=== PATIENT | female | born 1985 | race Caucasian/White ===

== ENCOUNTER 2019-03-23 20:54 | Emergency (ER) | payer BC, OTHER ==
[~2019-03-23] VITALS: Ht 154.9 cm; Wt 81.6 kg
[2019-03-23 21:11] VITALS: Ht 154.9 cm; Wt 81.6 kg
[2019-03-23] MEDS ORDERED: SOD CHLORIDE 0.9% 100 ML ONE (22:42)
[2019-03-23] MEDS ORDERED: IOHEXOL 100 ML ONE (22:42)
[2019-03-23] MEDS ORDERED: DOCU-159 PO (23:23)
[2019-03-23] MEDS ORDERED: IBUP-1542 PO (23:23)
[2019-03-23] MEDS ORDERED: FER325 PO (23:23)
[2019-03-23] MEDS ORDERED: PREN-6 PO (23:23)
[2019-03-24 00:21] VITALS: BP 110/80; PULSE 78; RESP 19
--- NOTE | 2019-03-24 00:30 | ERD ---
ER Documentation Chief Complaint Chief Complaint SOB yesterday. 5 days post . +chest pressure. +swelling all over. HPI Is a very pleasant 33 female says shortness of breath on and off since she delivered approximately 1 week ago. She complains of mild chest pressure and she comes edema bilateral lower extremities. She denies any fevers chills nausea vomiting. She denies any headache. She denies any focal neurologic comp laints for chest pain is very mild and is since dissipated since it first began pain shortness of breath is also resolved with the patient want to be checked out just in case per the patient. No history of cardiac disease. Normal spontaneous vaginal delivery. No complications of . ROS All systems reviewed and are negative except as per history of present illness. Medications Home Meds Reported Medications Vits #93-Iron Fum-FA ( Formula) 1 Each Tablet, 1 TAB PO DAILY, TAB 03/23/19 Ibuprofen* (Ibuprofen*) 600 Mg Tablet, 600 MG PO Q6H PRN for PAIN LEVEL 1-5, TAB 03/23/19 Ferrous Sulfate* (Ferrous Sulfate*) 325 Mg Tabec, 325 MG PO DAILY for 90 Days, #90 03/23/19 Docusate Sodium* (Docusate Sodium*) 100 Mg Capsule, 100 MG PO BID for 30 Days, #60 03/23/19 Allergies Allergies: Coded Allergies: No Known Drug Allergy (Verified Allergy, Unknown, 03/23/19) PMhx/Soc Medical and Surgical Hx: pt denies Medical Hx, pt denies Surgical Hx Hx Alcohol Use: No Hx Substance Use: No Hx Tobacco Use: No Smoking Status: Never smoker Physical Exam Vitals Vital Signs Date Temp Pulse Resp B/P (MAP) Pulse Ox O2 O2 Flow FiO2 Time Delivery Rate 03/23/19 61 22 119/77 98 Room Air 22:58 (91) 03/23/19 98.2 74 24 160/81 97 21:11 (107) Physical Exam Const: No acute distress Head: Atraumatic Eyes: Normal Conjunctiva ENT: Normal External Ears, Nose and Mouth. Neck: Full range of motion. No meningismus. Resp: Clear to auscultation bilaterally Cardio: Regular rate and rhythm, no murmurs Abd: Soft, non tender, non distended. Normal bowel sounds Skin: No petechiae or rashes Back: No midline or flank tenderness Ext: No cyanosis, or edema Neur: Awake and alert Psych: Normal Mood and Affect Result Diagram: 03/23/19213803/23/192138 Results 24 hrs Laboratory Tests Test 03/23/19 21:34 03/23/19 21:39 03/23/19 21:49 03/23/19 23:36 Blood Gas Blood arterial Specimen Source Arterial Blood 03/23/2019 11:00:1 Date Drawn 9 PM Arterial Blood pH 7.439 (Temp corrected) Arterial Blood 33.2 mmhg pCO2 (Temp correct) Arterial Blood 94.5 mmHG pO2 (Temp corrected) Arterial Blood 22.0 mmol/L HCO3 Arterial Blood -1.5 mmol/L Base Excess Arterial Blood 96.9 mmHG Oxygen Saturation Manuel Test ACCEPTAB Arterial Blood Right Radial Gas Puncture Site Arterial 0.3 % Blood Carboxyhemo globin Arterial Blood 0.2 % Methemoglobin Blood Gas A-a O2 15.5 mmHg Differential Oxyhemoglobin 96.4 % Percent Blood Gas 37.0 C Temperature Blood Gas ROOM AIR Modality FiO2 21.0 % Blood Gas MR Notified Whom Blood Gas 03/23/2019 11:05:4 Notified Time 7 PM White Blood Count 10.4 10^3/ul Red Blood Count 4.07 10^6/ul Hemoglobin 12.3 g/dl Hematocrit 36.8 % Mean Corpuscular 90.4 fl Volume Mean Corpuscular 30.2 pg Hemoglobin Mean Corpuscular 33.4 g/dl Hemoglobin Concen t Red Cell 13.8 % Distribution Width Platelet Count 262 10^3/UL Mean Platelet 10.7 fl Volume Immature 0.900 % Granulocytes % Neutrophils % 60.6 % Lymphocytes % 31.6 % Monocytes % 4.8 % Eosinophils % 1.8 % Basophils % 0.3 % Nucleated Red 0.0 /100WBC Blood Cells % Immature 0.090 10^3/ul Granulocytes # Neutrophils # 6.3 10^3/ul Lymphocytes # 3.3 10^3/ul Monocytes # 0.5 10^3/ul Eosinophils # 0.2 10^3/ul Basophils # 0.0 10^3/ul Nucleated Red 0.0 10^3/ul Blood Cells # Prothrombin Time 11.4 Sec Prothrombin Time 0.9 Ratio INR International 0.82 Normalized Ratio Activated 29.6 Sec Partial Thrombopl ast Time Urine Color YELLOW Urine Clarity CLEAR Urine pH 6.0 Urine Specific 1.006 Leblanc Urine Ketones NEGATIVE mg/dL Urine Nitrite NEGATIVE mg/dL Urine Bilirubin NEGATIVE mg/dL Urine NEGATIVE mg/dL Urobilinogen Urine Leukocyte TRACE Tere/ul Esterase Urine Microscopic 51 /HPF RBC Urine Microscopic 8 /HPF WBC Urine Bacteria FEW /HPF Urine Hemoglobin 3+ mg/dL Urine Glucose NEGATIVE mg/dL Urine Total NEGATIVE mg/dl Protein Sodium Level 137 mmol/L Potassium Level 3.8 mmol/L Chloride Level 106 mmol/L Carbon Dioxide 24 mmol/L Level Anion Gap 7 Blood Urea 15 mg/dl Nitrogen Creatinine 0.49 mg/dl Est Glomerular > 60 mL/min Filtrat Rate mL/min Glucose Level 93 mg/dl Calcium Level 9.5 mg/dl Total Bilirubin 0.3 mg/dl Direct Bilirubin 0.00 mg/dl Indirect 0.3 mg/dl Bilirubin Aspartate Amino 43 IU/L Transf (AST/SGOT) Alanine 52 IU/L Aminotransferase (ALT/SGPT) Alkaline 159 IU/L Phosphatase Troponin I < 0.012 ng/ml B-Type 159 PG/ML Natriuretic Peptide Total Protein 6.7 g/dl Albumin 3.5 g/dl Globulin 3.20 g/dl Albumin/Globulin 1.09 Ratio POC Venous 0.8 mmol/L Lactate Lactic Acid Level 0.8 mmol/L Current Medications Medications Dose Sig/Reynold Start Time Status Last (Trade) Ordered Route PRN Stop Time Admin Dose Reason Admin IV Flush 10 ml STK-MED 03/23/19 DC (NS 10 ml) ONCE .ROUTE 22:42 03/23/19 22:43 Sodium 100 ml @ ud STK-MED 03/23/19 DC Chloride ONCE .ROUTE 22:42 03/23/19 22:43 Iohexol 100 ml @ ud STK-MED 03/23/19 DC ONCE .ROUTE 22:42 03/23/19 22:43 Procedures/MDM EKG: Rate/Rhythm: [Normal Sinus Rhythm] QRS, ST, T-waves: [No changes consistent w/ acute ischemia] Impression: [No evidence of ischemia or arrhythmia] Chest X-ray 1V Interpreted by me: Soft Tissue: No acute abnormalities Bones: No acute abnormalities Mediastinum/Cardiac Silhouette/Lungs: [No acute abnormalities] CT angios chest was negative for PE or other abnormalities. Please see radiologist full dictation full report. Medical decision making: Patient's thoracic symptoms have stabilized while in the department and are stable for outpatient follow up. Exam and work up not consistent w/ ischemia, arrhythmia, PE or dissection. Departure Diagnosis: Primary Impression: Shortness of breath Condition: Stable Patient Instructions: Peripheral Edema, Bilateral KESHA ESTRADA Mar 24, 2019 00:30
== END 2019-03-24 00:33 | disposition home or self-care (01) ==
LOC: E/R 20:54
DX: O99.89 Other specified diseases and conditions complicating pregnancy, childbirth and the puerperium (principal); R06.02 Shortness of breath
CPT/HCPCS: 36415; 36600; 71045; 71275; 80053; 81001; 82803; 83605; 83880; 84484; 85025; 85610; 85730; 93005; 99285; Q9967